=== PATIENT | male | born 1960 | race Asian ===

== ENCOUNTER 2019-05-03 12:23 | Day surgery (SDC) | payer OTHER ==
[2019-05-03] VITALS (9 sets, daily range): BP systolic 85–133; BP diastolic 54–87
[~2019-05-03] VITALS: Ht 167.6 cm; Wt 62.1 kg
[~2019-05-03 12:23] MED LIST: ceFAZolin 1gm IVPB IVPB ONE; celeBREX 200mg Cap **SURGERY PATIENTS ONLY ORAL ONE; oxyCONTIN 20mg tab ORAL ONE
[2019-05-03] MEDS ORDERED: celeBREX 200mg Cap **SURGERY PATIENTS ONLY ORAL ONE (13:11)
[2019-05-03] MEDS ORDERED: oxyCONTIN 20mg tab ORAL ONE (13:11)
[2019-05-03] MEDS ORDERED: LR 1000ml 1,000 ML IVLG SCH (13:26)
--- NOTE | 2019-05-03 13:26 | Anethesia Preoperative Eval ---
Anesthesia Pre-op PMH/ROS General Date of Evaluation: May 03, 2019 Anesthesiologist: Sean ASA Score: ASA 2 Mallampati Score Class I : Soft palate, uvula, fauces, pillars visible Class II: Soft palate, uvula, fauces visible Class III: Soft palate, base of uvula visible Class IV: Only hard plate visible Mallampati Classification: Class II Surgeon: Nic Diagnosis: left shoulder internal derangement Surgical Procedure: left shouler arhtroscopy Anesthesia History: none Family History: no anesthesia problems Allergies: Coded Allergies: No Known Allergies (Unverified , 05/02/19) Medications: see eMAR Patient NPO?: Yes NPO Date: May 02, 2019 NPO Time: 22:00 Past Medical History Cardiovascular: Reports: HTN; Denies: CAD, SD, valve dz, arrhythmia, other Pulmonary: Denies: asthma, COPD, ITZEL, other Gastrointestinal/Genitourinary: Denies: GERD, CRI, ESRD, other Neurologic/Psychiatric: Denies: dementia, CVA, depression/anxiety, TIA, other Endocrine: Reports: DM; Denies: hypothyroidism, steroids, other HEENT: Denies: cataract (L), cataract (R), glaucoma, [place] (L), [place] (R), other Hematology/Immune: Denies: anemia, DVT, bleeding disorder, other Musculoskeletal/Integumentary: Denies: OA, RA, DJD, DDD, edema, other PSxH Narrative: denies Anesthesia Pre-op Phys. Exam Physician Exam Last Vital Signs Date Time Temp Pulse Resp B/P (MAP) Pulse Ox O2 Delivery O2 Flow Rate FiO2 05/03/19 12:59 Room Air 05/03/19 12:53 97.4 64 18 106/59 100 Constitutional: NAD Cardiovascular: RRR Respiratory: CTA Airway Exam Mallampati Score: Class II MO: full ROM: full Teeth: intact Anesthesia Pre-op A/P Labs see chart Risk Assessment & Plan Assessment: ASA II Plan: GA with left interscalene nerve block Status Change Before Surgery: No Pre-Antibiotics Drug: Ancef 1g Given Within 1 Hr of Incision: Yes Cira Estes MD May 03, 2019 13:26
[2019-05-03] MEDS ORDERED: DiphenhydrAMINE 50mg/ml Inj IVP PRN (13:30)
[2019-05-03] MEDS ORDERED: Ketorolac 30mg Inj IV PRN (13:30)
[2019-05-03] MEDS ORDERED: Midazolam 2mg/2ml Inj IVP PRN (13:30)
[2019-05-03] MEDS ORDERED: LORazepam Inj 2mg/ml 1ml IV PRN (13:30)
[2019-05-03] MEDS ORDERED: Hydromorphone 0.5mg/0.5ml inj IVP PRN (13:30)
[2019-05-03] MEDS ORDERED: fentaNYL 100 mcg/2 mL IV PRN (13:30)
[2019-05-03] MEDS ORDERED: Metoclopramide 10mg/2ml Inj IVP PRN (13:30)
[2019-05-03] MEDS ORDERED: EPINEPHrine 1mg/1ml Amp ONE (14:14)
[2019-05-03] MEDS ORDERED: Kenalog-40 1ml Vial ONE (14:14)
[2019-05-03] MEDS ORDERED: Ketorolac 30mg Inj ONE ×2 (14:15→15:23)
[2019-05-03] MEDS ORDERED: Duramorph PF 5mg/10ml amp ONE (14:15)
[2019-05-03] MEDS ORDERED: fentaNYL 100 mcg/2 mL IV ONE (14:35)
[2019-05-03] MEDS ORDERED: Lidocaine 1% MPF 10mg/ml 5ml ONE (14:35)
[2019-05-03] MEDS ORDERED: Propofol 200mg/20ml IV ONE (14:35)
[2019-05-03] MEDS ORDERED: Midazolam 2mg/2ml Inj ONE (14:35)
[2019-05-03] MEDS ORDERED: Ropivacaine 5mg/ml Vial 30ml INJ ONE (14:58)
[2019-05-03] MEDS ORDERED: NS Irrig 4000ml IRRIG ONE (15:00)
[2019-05-03] MEDS ORDERED: LR 1000ml ONE (15:00)
[2019-05-03] MEDS ORDERED: Duramorph PF 5mg/10ml amp EPIDUR ONE (15:16)
[2019-05-03] MEDS ORDERED: Dexamethasone 4mg/ml vial ONE (15:24)
--- NOTE | 2019-05-03 16:14 | Pre-Procedure Note/Attestation ---
Pre-Procedure Note/Attestation Complete Prior to Procedure Planned Procedure: left Procedure Narrative: shoulder arthroscopy, sad, pancapsular release, manipulation under anesthesia Indications for Procedure Pre-Operative Diagnosis: left shoulder adhesive capsilitis, impingement Attestation I attest that I discussed the nature of the procedure; its benefits; risks and complications; and alternatives (and the risks and benefits of such alternatives ), prior to the procedure, with the patient (or the patient's legal customer account representative). I attest that, if there was a reasonable possibility of needing a blood transfusion, the patient (or the patient's legal customer account representative) was given the [facility] standardized written summary, pursuant to the Riley Aaliyah Blood Safety Act ([place] Health and Safety Code # 1645, as amended). I attest that I re-evaluated the patient just prior to the surgery and that there has been no change in the patient's H&P, except as documented below: Joe Lucero MD May 03, 2019 16:14
--- NOTE | 2019-05-03 16:14 | Operative Note - PDOC ---
Operative Note Operative Note Pre-op Diagnosis: left shoulder adhesive capsilitis, impingement Procedure: see op report Post-op Diagnosis: same as pre-op plus Operative Findings: consistent w/pre-op dx studies Anesthesia: MAC Specimen: none Complications: none Condition: stable Estimated Blood Loss: none Implant(s) used?: No Joe Lucero MD May 03, 2019 16:14
[2019-05-03] MEDS ORDERED: HYDROcodone/Acetamin 5/325 tab ORAL PRN (16:15)
[2019-05-03] MEDS ORDERED: HYDROmorphone 1mg/ml Carpuject SUBQ PRN (16:15)
[2019-05-03] MEDS ORDERED: Tylenol #3 tab (300mg/30mg) ORAL PRN (16:15)
--- NOTE | 2019-05-03 16:26 | Immediate Post-Op Evaluation ---
Immediate Post-Op Evalulation Immediate Post-Op Evalulation Procedure: Left shoulder arthroscopy Date of Evaluation: May 03, 2019 Time of Evaluation: 16:27 IV Fluids: 800 Blood Products: 0 Estimated Blood Loss: min Urinary Output: 0 Blood Pressure Systolic: 95 Blood Pressure Diastolic: 54 Pulse Rate: 58 Respiratory Rate: 16 O2 Sat by Pulse Oximetry: 96 Temperature (Fahrenheit): 97 Pain Score (1-10): 0 Nausea: No Vomiting: No Complications 0 Patient Status: awake, reacts, patent, none Hydration Status: adequate Drug: Ancef 1g Given Within 1 Hr of Incision: Yes Cira Estes MD May 03, 2019 16:26
--- NOTE | 2019-05-03 16:27 | 48 Hour Post Anesthesia Eval ---
Post Anesthesia Evaluation Procedure: Left shoulder arthroscopy Date of Evaluation: May 03, 2019 Airway: patent Nausea: No Vomiting: No Hydration Status: adequate Cardiopulmonary Status: at baseline Mental Status/LOC: patient returned to baseline Post-Anesthesia Complications: 0 Follow-up care needed: ready to discharge Cira Estes MD May 03, 2019 16:27
[2019-05-03] MEDS ORDERED: D5 1/2NS 1,000 ML IV SCH (19:00)
--- NOTE | 2019-05-04 02:45 | Operative Note - Dictated ---
DATE OF OPERATION: 05/03/2019 PREOPERATIVE DIAGNOSES: 1. Left shoulder adhesive capsulitis. 2. Left shoulder impingement syndrome. POSTOPERATIVE DIAGNOSES: 1. Left shoulder adhesive capsulitis. 2. Left shoulder impingement syndrome. PROCEDURES: 1. Left shoulder arthroscopy and extensive intra-articular debridement. 2. Left shoulder pancapsular release. 3. Left shoulder subacromial decompression bursectomy. SURGEON: Joe Lucero M.D. ANESTHESIA: Interscalene with general. INDICATION FOR PROCEDURE: The patient is a pleasant gentleman, who has had an injury to his left shoulder. He has had significant adhesive capsulitis and restricted range of motion that failed conservative treatment, elected to undergo left shoulder arthroscopy, pancapsular release, concurrent subacromial decompression, bursectomy. Risks, limitations, expectations, and complications of procedure were discussed in detail. All questions addressed. DESCRIPTION OF PROCEDURE: After informed consent was obtained, the patient was brought to the operating room and was placed under interscalene general anesthesia. The left shoulder was prepped and draped in a sterile manner. Time-out was performed. Examination under showed forward elevation was 90, abduction was 60, with limited and external rotation. Gentle anesthesia was performed. Forward flexion to 170, abduction to 90, external rotation 90, internal rotation 70. At this point, the camera was placed in the glenohumeral joint. Significant erythema throughout the shoulder joint. The portal was placed through the rotator interval. The rotator interval was released. Once that was done, the camera was placed through the rotator interval and the posterior capsule was then released. Once that was done, camera was placed in the subacromial space and hypertrophic bursal tissue. Complete bursectomy was performed. Undersurface of the acromion was identified. Acromioplasty started from lateral to medial and completed posterior to anterior debridement and removal of the bursa posteriorly was performed. The instruments were removed. Portal sites were closed using 3-0 Monocryl sutures. Steri-Strips and sterile dressing were applied. ESTIMATED BLOOD LOSS: None. COMPLICATIONS: None. SPECIMENS: None. Joe Lucero M.D. DR: Maria JOB#: [id number] CC:
== END 2019-05-03 17:55 | disposition home or self-care (01) ==
LOC: SUR 12:23
DX: M75.02 Adhesive capsulitis of left shoulder (principal); M75.42 Impingement syndrome of left shoulder; E11.9 Type 2 diabetes mellitus without complications; I10 Essential (primary) hypertension; Z79.899 Other long term (current) drug therapy
CPT/HCPCS: 29823; 82962; J0171; J0690; J1100; J1885; J2250; J2405; J2704; J2795; J3010; J3301; 94003; 94150